=== PATIENT | male | born 1980 | race African-American/Black ===

== ENCOUNTER 2016-05-14 15:22 | Emergency (ER) | payer OTHER ==
[~2016-05-14] VITALS: Ht 193 cm; Wt 120.8 kg
[2016-05-14 15:27] VITALS: BP 140/80
--- NOTE | 2016-05-14 20:10 | NUR ---
PATIENT LEFT WITHOUT BEING SEEN BY DR. CASAS. NO FURTHER CARE PROVIDED FOR PATIENT.
== END 2016-05-14 20:10 | disposition left against medical advice (07) ==
LOC: MED 15:22
DX: R10.13 Epigastric pain (principal); R07.89 Other chest pain; Z53.21 Procedure and treatment not carried out due to patient leaving prior to being seen by health care provider
CPT/HCPCS: 93005

== ENCOUNTER 2016-05-22 23:01 | Emergency (ER) | payer OTHER ==
[~2016-05-22] VITALS: Ht 182.9 cm; Wt 120.7 kg
[2016-05-22 23:06] VITALS: BP 142/81
--- NOTE | 2016-05-23 01:19 | NUR ---
PT TAKEN TO BED 8
--- NOTE | 2016-05-23 01:20 | NUR ---
35Y/M PATIENT PRESENTS TO ED WITH C/O BACK PAIN X 1 WK . PT STATES DENIES TRAUMA, NO FEVER . DENIES N/V/D; SKIN IS PINK/WARM/DRY; AAOX4 WITH EVEN AND STEADY GAIT; LUNGS CLEAR BL; HR EVEN AND REGULAR; PT DENIES ANY FEVER, CP, SOB, OR COUGH AT THIS TIME; PATIENT STATES PAIN OF 10/10 AT THIS TIME; VSS; PATIENT POSITIONED FOR COMFORT; HOB ELEVATED; BEDRAILS UP X2; BED DOWN. ER MD MADE AWARE OF PT STATUS.
--- NOTE | 2016-05-23 02:24 | NUR ---
Dr. Ng evaluating patient at bedside.
[2016-05-23] MEDS ORDERED: DIAZEPAM 5 MG TAB PO ONE (02:30)
[2016-05-23] MEDS ORDERED: KETOROLAC 30 MG/ML VIAL IM ONE (02:30)
--- NOTE | 2016-05-23 03:00 | NUR ---
Patient discharged with v/s stable. Written and verbal after care instructions given and explained. Patient alert, oriented and verbalized understanding of instructions. Ambulatory with steady gait. All questions addressed prior to discharge. ID band removed. Patient advised to follow up with PMD. Rx of TYLENOL NO.3, VALIUM 5 MG, NAPROSYN 500 MG given. Patient educated on indication of medication including possible reaction and side effects. Opportunity to ask questions provided and answered. ACCOMPANIED BY FAMILY.
[2016-05-23 03:02] VITALS: BP 132/82
== END 2016-05-23 03:00 | disposition home or self-care (01) ==
LOC: MED 23:01
DX: S39.012A Strain of muscle, fascia and tendon of lower back, initial encounter (principal); Z88.0 Allergy status to penicillin; X58.XXXA Exposure to other specified factors, initial encounter; Y93.89 Activity, other specified; Y92.89 Other specified places as the place of occurrence of the external cause; Y99.8 Other external cause status
CPT/HCPCS: 81002; 96372; 99283; J1885

== ENCOUNTER 2017-04-06 03:59 | Emergency (ER) | payer OTHER ==
[~2017-04-06] VITALS: Ht 182.9 cm; Wt 119.3 kg
[2017-04-06 04:09] VITALS: BP 139/87
--- NOTE | 2017-04-06 04:15 | NUR ---
PT. AMBULATED TO ER ABIEL
--- NOTE | 2017-04-06 04:17 | NUR ---
DR. CASAS EVALUATING PT
[2017-04-06] MEDS ORDERED: KETOROLAC 30 MG/ML VIAL IM ONE (04:25)
--- NOTE | 2017-04-06 04:56 | NUR ---
36 Y/O M W/C/O SHOULDER PAIN X 2 WKS. DENIES ANY TRAUMA OR INJURY.TOOK MOTRIN 1 HRS AGO. NO MED HX. NO OTHER S/S OF DISTRESS NOTED AT THE MOMENT.
[2017-04-06 05:42] VITALS: BP 139/87
--- NOTE | 2017-04-06 05:42 | NUR ---
Patient discharged with v/s stable. Written and verbal after care instructions given and explained. Patient alert, oriented and verbalized understanding of instructions. Ambulatory with steady gait. All questions addressed prior to discharge. ID band removed. Patient advised to follow up with PMD. Rx of NAPROSYN 500 MG, VALIUM 5 MG given. Patient educated on indication of medication including possible reaction and side effects. Opportunity to ask questions provided and answered.
== END 2017-04-06 05:42 | disposition home or self-care (01) ==
LOC: MED 03:59
DX: M75.92 Shoulder lesion, unspecified, left shoulder (principal); Z88.0 Allergy status to penicillin
CPT/HCPCS: 73030; 96372; 99284; J1885

== ENCOUNTER 2018-03-09 11:28 | Emergency (ER) | payer OTHER ==
[~2018-03-09] VITALS: Ht 193 cm; Wt 117.5 kg
[2018-03-09 12:12] VITALS: BP 128/81
--- NOTE | 2018-03-09 13:19 | NUR ---
PT AMBULATED TO ER BED 02
--- NOTE | 2018-03-09 13:38 | NUR ---
RIGHT INGROWN NAIL , GREAT TOE; COMPLETED 1 WK COURSE OF KEFLEX PRESCRIBED OUTSIDE CLINIC. HX--DENIES RX---NONE
--- NOTE | 2018-03-09 14:05 | NUR ---
Patient being evaluated by DR MCDONALD at bedside.
[2018-03-09] MEDS ORDERED: LIDOCAINE 2% 1000 MG/50 ML VIAL INJ ONE (14:10)
[2018-03-09] MEDS ORDERED: BACITRACIN OINT 500 UNITS/GM PKT TP ONE (15:17)
[2018-03-09 15:22] VITALS: BP 118/68
--- NOTE | 2018-03-09 15:22 | NUR ---
Patient discharged with v/s stable. Written and verbal after care instructions given and explained. Patient verbalized understanding. Ambulatory with steady gait. All questions addressed prior to discharge. Advised to follow up with PMD.
== END 2018-03-09 15:22 | disposition home or self-care (01) ==
LOC: MED 11:28
DX: L60.0 Ingrowing nail (principal); Z88.0 Allergy status to penicillin
CPT/HCPCS: 11730; 99283; J2001

== ENCOUNTER 2018-07-01 05:32 | Emergency (ER) | payer OTHER ==
[~2018-07-01] VITALS: Ht 193 cm; Wt 124.7 kg
[2018-07-01 05:35] VITALS: BP 141/81
--- NOTE | 2018-07-01 05:35 | NUR ---
PT PRESENTS TO ED WITH C/O NON-RADIATING LEFT CHEST PAIN AND LEFT LEG PAIN X3 HRS. 10/10 SEVERE STABBING PAIN. NAUSEA WITHOUT VOMITNIG. NO SOB/DYSNPEA. A&OX4. HR 92 SINUS RHYTHM. POSITOINED IN BED FOR COMFORT WITH HOB ELEVATED. X1 SIDE RAIL UP. ER MD AWARE. CONTINUE TO MONITOR.
--- NOTE | 2018-07-01 05:35 | NUR ---
PT TAKEN TO BED 7
--- NOTE | 2018-07-01 05:42 | NUR ---
EKG PERFORMED AT BEDSIDE. PT COVERED IN GOWN DURING PROCEDURE
--- NOTE | 2018-07-01 05:51 | NUR ---
Dr. Ng evaluating patient at bedside.
[2018-07-01] MEDS ORDERED: DIAZEPAM 5 MG TAB PO ONE (05:55)
[2018-07-01] MEDS ORDERED: KETOROLAC 30 MG/ML VIAL IM ONE (05:55)
--- NOTE | 2018-07-01 06:00 | NUR ---
PT UNABLE TO GIVE URINE AT THIS TIME. URINE CUP AT BEDSIDE. PROVIDED WITH WATER.
--- NOTE | 2018-07-01 06:10 | NUR ---
X-Ray at bedside.
[2018-07-01 07:33] VITALS: BP 136/96
== END 2018-07-01 07:33 | disposition home or self-care (01) ==
LOC: MED 05:32
DX: R07.89 Other chest pain (principal); Z88.0 Allergy status to penicillin
CPT/HCPCS: 71045; 96372; 99283; J1885; Q0092; 93005

== ENCOUNTER 2018-07-21 14:17 | Emergency (ER) | payer OTHER ==
[~2018-07-21] VITALS: Ht 193 cm; Wt 123.4 kg
[2018-07-21 14:25] VITALS: BP 122/66
--- NOTE | 2018-07-21 14:30 | NUR ---
PT AMBULATED TO BED 9, PROVIDED CUP FOR URINE SAMPLE
--- NOTE | 2018-07-21 14:32 | NUR ---
pt moved to bed 3
--- NOTE | 2018-07-21 14:54 | NUR ---
C/O LLQ ABD PAIN RADIATING TO RLQ10/10 SHARP, CONTINUOUS X 1 DAYS W/ NAUSEA. DENIES VOMITING AND DIARRHEA; AAOX4 WITH EVEN AND STEADY GAIT; LOWER ABDOMINAL SOFT, FLAT, BUT TENDERNESS AND RIGHT CVA TENDERNESS ON PALPATION. PT DENIES ANY FEVER, CP, SOB, OR COUGH AT THIS TIME; PATIENT STATES PAIN OF 10/10 AT THIS TIME; VSS; PATIENT POSITIONED FOR COMFORT; HOB ELEVATED; BEDRAILS UP X1; BED DOWN. ER MD MADE AWARE OF PT STATUS.
[2018-07-21] MEDS ORDERED: NACL 0.9% 1,000 ML IV SCH (15:02)
[2018-07-21] MEDS ORDERED: KETOROLAC 30 MG/ML VIAL IVP ONE (15:05)
[2018-07-21] MEDS ORDERED: ONDANSETRON 4 MG/2 ML VIAL IVP ONE (15:05)
[2018-07-21 15:29] LABS: APPEARANCE,URINE CLEAR (CLEAR); BILIRUBIN,URINE NEGATIVE (NEGATIVE); BLOOD, URINE NEGATIVE (NEGATIVE); COLOR,URINE YELLOW (YELLOW); LEUKOCYTE ESTERASE ,URINE NEGATIVE (NEGATIVE); NITRITE, URINE NEGATIVE (NEGATIVE); UGLUCOSE NEGATIVE (NEGATIVE)
[2018-07-21 15:30] LABS: BASOPHILS # (AUTO) 0.1 K/uL (0.00-0.22); BASOPHILS % (AUTO) 0.6 % (0.0-2.0); EOSINOPHILS # (AUTO) 0.1 K/uL (0-0.4); EOSINOPHILS % (AUTO) 1.1 % (0.0-4.0); HEMATOCRIT 44.6 % (36-52); HEMOGLOBIN 14.5 g/dL (12.0-18.0); LYMPHOCYTES % (AUTO) 11.5 % (20.5-51.1); MEAN CORPUSCULAR HEMOGLOBIN 28 pg (27-31); MEAN CORPUSCULAR HGB CONC 33 g/dL (33-37); MONOCYTES # (AUTO) 0.6 K/uL (0.8-1.0); MONOCYTES % (AUTO) 7.2 % (1.7-9.3); NEUTROPHILS # (AUTO) 6.6 K/uL (1.8-7.7); NEUTROPHILS % (AUTO) 79.6 % (42.2-75.2); PLATELET COUNT (AUTO) 199 K/uL (140-450); RED BLOOD CELL COUNT(AUTO) 5.19 MIL/uL (4.20-6.10); RED CELL DISTRIBUTION WIDTH 14.4 % (11.6-13.7); WHITE BLOOD COUNT (AUTO) 8.3 K/uL (4.8-10.8)
[2018-07-21 15:38] LABS: CARBON DIOXIDE 28.8 mmol/L (21-32); CREATININE 1.1 mg/dL (0.7-1.3); POTASSIUM 3.8 mmol/L (3.5-5.1)
[2018-07-21 15:44] LABS: ALBUMIN 3.4 g/dL (3.4-5.0); TOTAL BILIRUBIN 1.2 mg/dL (0.0-1.0)
[2018-07-21] MEDS ORDERED: metroNIDAZOLE 250 MG TAB PO ONE (16:20)
[2018-07-21] MEDS ORDERED: SULFAMETH/TRIMETH DS 800/160MG 1 TAB PO ONE (16:20)
[2018-07-21 17:14] VITALS: BP 122/59
--- NOTE | 2018-07-21 17:15 | NUR ---
Patient discharged with v/s stable. Written and verbal after care instructions given and explained. Patient alert, oriented and verbalized understanding of instructions. Ambulatory with steady gait. All questions addressed prior to discharge. ID band removed. Patient advised to follow up with PMD. Rx of [place], Colace, Flagyl, and Bactrim given. Patient educated on indication of medication including possible reaction and side effects. Opportunity to ask questions provided and answered.
== END 2018-07-21 17:15 | disposition home or self-care (01) ==
LOC: MED 14:17
DX: K57.92 Diverticulitis of intestine, part unspecified, without perforation or abscess without bleeding (principal); R03.0 Elevated blood-pressure reading, without diagnosis of hypertension; M54.9 Dorsalgia, unspecified; Z88.0 Allergy status to penicillin
CPT/HCPCS: 36415; 74176; 80053; 81003; 83605; 85025; 87040; 96374; 96375; 99284; J1885; J2405; J7030

== ENCOUNTER 2018-07-22 15:24 | Emergency (ER) | payer OTHER ==
[~2018-07-22] VITALS: Ht 193 cm; Wt 123.8 kg
[2018-07-22 16:01] VITALS: BP 134/69
--- NOTE | 2018-07-22 16:12 | NUR ---
PATIENT AMBULATED TO BED 8 AT THIS TIME.
--- NOTE | 2018-07-22 16:35 | NUR ---
DR. ZIMMERMAN BEDSIDE EVALUATING PT
--- NOTE | 2018-07-22 16:35 | NUR ---
PATIENT PRESENTS TO ED WITH C/O LLQ ABD PAIN X 2 DAYS . +NAUSEA, +VOMITING. DENIES DIARRHEA OR FEVER. PATIENT STATES PAIN OF 10/10 AT THIS TIME; PATIENT POSITIONED FOR COMFORT; HOB ELEVATED; BEDRAILS UP X1; BED DOWN. PENDING ER MD EVALUATION.
[2018-07-22] MEDS ORDERED: NACL 0.9% 1,000 ML IV ONE (16:40)
--- NOTE | 2018-07-22 17:17 | NUR ---
PT TAKEN TO CT VIA WHEELCHAIR
[2018-07-22 17:18] LABS: BASOPHILS % (AUTO) 0.2 % (0.0-2.0); EOSINOPHILS # (AUTO) 0.1 K/uL (0-0.4); EOSINOPHILS % (AUTO) 0.6 % (0.0-4.0); HEMATOCRIT 41.4 % (36-52); HEMOGLOBIN 13.4 g/dL (12.0-18.0); LYMPHOCYTES # (AUTO) 0.9 K/uL (2.0-11.5); LYMPHOCYTES % (AUTO) 8.4 % (20.5-51.1); MEAN CORPUSCULAR HEMOGLOBIN 28 pg (27-31); MEAN CORPUSCULAR HGB CONC 32 g/dL (33-37); MEAN CORPUSCULAR VOLUME 86.4 fL (80-94); MONOCYTES % (AUTO) 9.2 % (1.7-9.3); NEUTROPHILS # (AUTO) 8.6 K/uL (1.8-7.7); NEUTROPHILS % (AUTO) 81.6 % (42.2-75.2); PLATELET COUNT (AUTO) 199 K/uL (140-450); RED BLOOD CELL COUNT(AUTO) 4.79 MIL/uL (4.20-6.10); RED CELL DISTRIBUTION WIDTH 14.2 % (11.6-13.7); WHITE BLOOD COUNT (AUTO) 10.5 K/uL (4.8-10.8)
--- NOTE | 2018-07-22 17:31 | NUR ---
PT RETURNED FROM CT
[2018-07-22 17:44] LABS: ANION GAP 10.4 (8-16); CARBON DIOXIDE 28.8 mmol/L (21-32); CREATININE 1.1 mg/dL (0.7-1.3); POTASSIUM 4.2 mmol/L (3.5-5.1)
[2018-07-22 17:49] LABS: ALBUMIN 3.1 g/dL (3.4-5.0); TOTAL BILIRUBIN 1.8 mg/dL (0.0-1.0)
[2018-07-22 18:04] LABS: APPEARANCE,URINE CLEAR (CLEAR); BILIRUBIN,URINE NEGATIVE (NEGATIVE); BLOOD, URINE NEGATIVE (NEGATIVE); COLOR,URINE YELLOW (YELLOW); LEUKOCYTE ESTERASE ,URINE NEGATIVE (NEGATIVE); NITRITE, URINE NEGATIVE (NEGATIVE); UGLUCOSE NEGATIVE (NEGATIVE)
[2018-07-22] MEDS ORDERED: metroNIDAZOLE 250 MG TAB PO ONE (18:40)
[2018-07-22] MEDS ORDERED: AZITHROMYCIN 250 MG TAB PO ONE (18:40)
[2018-07-22 19:28] VITALS: BP 132/82
--- NOTE | 2018-07-22 19:28 | NUR ---
IV removed, catheter intact and site benign. Applied folded 4x4 gauze and tape to stop bleeding.
== END 2018-07-22 19:28 | disposition home or self-care (01) ==
LOC: MED 15:24
DX: K57.92 Diverticulitis of intestine, part unspecified, without perforation or abscess without bleeding (principal); R11.2 Nausea with vomiting, unspecified; Z88.0 Allergy status to penicillin
CPT/HCPCS: 36415; 74177; 80053; 81003; 85025; 96360; 96361; 99284; J7030; Q9967; 81002

== ENCOUNTER 2018-08-23 14:14 | Emergency (ER) | payer OTHER ==
[~2018-08-23] VITALS: Ht 193 cm; Wt 124.7 kg
[2018-08-23 14:15] VITALS: BP 122/82
--- NOTE | 2018-08-23 14:15 | NUR ---
PT c/o eczema exacerbation x 2 wks ; worsening with severe pruritus. DENIES N/V/D; AAOX4 WITH EVEN AND STEADY GAIT; PT DENIES ANY FEVER, CP, SOB, OR COUGH AT THIS TIME; PATIENT STATES PAIN OF 0/10 AT THIS TIME; VSS; PATIENT POSITIONED FOR COMFORT; HOB ELEVATED; BEDRAILS UP X1; BED DOWN. ER MD MADE AWARE OF PT STATUS.
--- NOTE | 2018-08-23 14:48 | NUR ---
Patient discharged with v/s stable. Written and verbal after care instructions given and explained. Patient alert, oriented and verbalized understanding of instructions. Ambulatory with steady gait. All questions addressed prior to discharge. ID band removed. Patient advised to follow up with PMD. Rx of HYDROCORTISONE, PREDNISONE, ATARAX given. Patient educated on indication of medication including possible reaction and side effects. Opportunity to ask questions provided and answered.
[2018-08-23 14:49] VITALS: BP 119/79
== END 2018-08-23 14:48 | disposition home or self-care (01) ==
LOC: MED 14:14
DX: L30.9 Dermatitis, unspecified (principal); Z88.0 Allergy status to penicillin
CPT/HCPCS: 99283

== ENCOUNTER 2019-02-20 17:37 | Emergency (ER) | payer SELFPAY ==
[~2019-02-20] VITALS: Ht 193 cm; Wt 124.7 kg
[2019-02-20 17:50] VITALS: BP 139/88
--- NOTE | 2019-02-20 18:17 | NUR ---
PT AMBULATED TO ER BED 08
--- NOTE | 2019-02-20 18:18 | NUR ---
PATIENT PRESENTS TO ED WITH c/o right shoulder pain >1 month; unable to lift above chest level . PATIENT STATES PAIN OF 8/10 AT THIS TIME; VSS; PATIENT POSITIONED FOR COMFORT; HOB ELEVATED; BEDRAILS UP X2; BED DOWN. ER MD MADE AWARE OF PT STATUS.
--- NOTE | 2019-02-20 18:55 | NUR ---
Patient being evaluated by physician at bedside.
[2019-02-20] MEDS ORDERED: KETOROLAC 60 MG/2 ML VIAL IM ONE (19:00)
--- NOTE | 2019-02-20 19:05 | NUR ---
REPORT GIVEN TO GOLF CADDY NURSE FOR CONTINUE OF CARE.
--- NOTE | 2019-02-20 19:05 | NUR ---
REPORT GIVEN FROM YANNICK SERRATO. TRANSFER OF CARE GIVEN.
--- NOTE | 2019-02-20 19:12 | NUR ---
PT AXO X4. RESPIRATIONS ARE EVEN AND UNLABORED. SKIN IS WARM AND DRY TO TOUCH. PT HAS C/O 8/10 R SHOULDER PAIN UNPROVOKED. TORADOL IM GIVEN FOR PAIN RELIEF. AT BEDSIDE.
--- NOTE | 2019-02-20 19:32 | NUR ---
PTS RIGHT ARM WAS PLACED IN A SHOULDER SLING. PTS [facility] [place] WNL.
--- NOTE | 2019-02-20 19:42 | NUR ---
PT TAKEN TO XRAY
--- NOTE | 2019-02-20 19:50 | NUR ---
PT RETURN FROM XRAY
--- NOTE | 2019-02-20 20:00 | NUR ---
SLING PLACED ON PT R SHOULDER BY ANG MEJIA. CMS INTACT. CAP REFIL <3. REPORTS NO NUMBNESS OR TINGLING.
[2019-02-20 20:14] VITALS: BP 139/88
== END 2019-02-20 20:16 | disposition home or self-care (01) ==
LOC: MED 17:37
DX: S46.811A Strain of other muscles, fascia and tendons at shoulder and upper arm level, right arm, initial encounter (principal); Z88.0 Allergy status to penicillin; X58.XXXA Exposure to other specified factors, initial encounter; Y93.89 Activity, other specified; Y92.89 Other specified places as the place of occurrence of the external cause; Y99.8 Other external cause status
CPT/HCPCS: 73030; 96372; 99283; J1885

== ENCOUNTER 2019-04-24 22:44 | Emergency (ER) | payer SELFPAY ==
[~2019-04-24] VITALS: Ht 193 cm; Wt 135.2 kg
[2019-04-24 22:50] VITALS: BP 139/86
--- NOTE | 2019-04-25 00:57 | NUR ---
PATIENT DENIES CHANGE IN STATUS, VS STABLE
--- NOTE | 2019-04-25 01:12 | NUR ---
PT AMBULATED TO BED 1
--- NOTE | 2019-04-25 01:25 | NUR ---
38 Y/M PRESENTS TO ED FOR PRODUCTIVE COUGH X1 WEEK, ALONG WITH NASAL CONGESTION, AND HEADACHE WHICH STARTED YESTERDAY 5/10 PAIN. NEGATIVE FOR SICK CONTACTS AT HOME. DENIES VOMITING, DIARRHEA, SOB OR FEVERS. RR EVEN AND UNLABORED. EXPIRATORY WHEEZES HEARD THORUGHOUT. PT TAKING THERAFLU AND NYQUIL AT HOME AND REPORTS NO RELIEF. PMH- DENIES.
--- NOTE | 2019-04-25 01:27 | NUR ---
REPORT GIVEN TO ROJELIO MO FOR CONTINUITY OF CARE.
--- NOTE | 2019-04-25 01:45 | NUR ---
PT SITTING IN BED, COMFORT MEASURES OFFERED, PT TOLERATED WELL.
[2019-04-25] MEDS ORDERED: ALBUTEROL 0.083% 2.5 MG/3 ML NEBU INH ONE (02:20)
--- NOTE | 2019-04-25 02:22 | NUR ---
Patient sitting up in bed. RT called for breathing treatment.
--- NOTE | 2019-04-25 02:30 | NUR ---
RT AT BEDSIDE.
[2019-04-25 03:22] VITALS: BP 138/89
--- NOTE | 2019-04-25 03:22 | NUR ---
Patient discharged with v/s stable. Written and verbal after care instructions given and explained. Patient alert, oriented and verbalized understanding of instructions. Ambulatory with steady gait. All questions addressed prior to discharge. ID band removed. Patient advised to follow up with PMD. Rx of ventolin, medrol given. Patient educated on indication of medication including possible reaction and side effects. Opportunity to ask questions provided and answered.
== END 2019-04-25 03:22 | disposition home or self-care (01) ==
LOC: MED 22:44
DX: J20.9 Acute bronchitis, unspecified (principal); Z88.0 Allergy status to penicillin
CPT/HCPCS: 71045; 87804; 94640; 99283; J7613; Q0092

== ENCOUNTER 2019-08-09 20:48 | Emergency (ER) | payer SELFPAY ==
[~2019-08-09] VITALS: Ht 193 cm; Wt 136.1 kg
[2019-08-09 21:01] VITALS: BP 152/91
--- NOTE | 2019-08-09 21:03 | NUR ---
PT IN TENT
--- NOTE | 2019-08-09 22:05 | NUR ---
COVID SWAB OBTAINED AND WALKED OVER TO LAB.
--- NOTE | 2019-08-10 00:25 | NUR ---
Patient discharged with v/s stable. Written and verbal after care instructions given and explained. Patient verbalized understanding. Ambulatory with steady gait. All questions addressed prior to discharge. Advised to follow up with PMD. Prescription of azithromycin, prednisolone, e-z spacer were given. Pt no other concerns noted and d/c
[2019-08-10 00:30] VITALS: BP 121/81
== END 2019-08-10 00:25 | disposition home or self-care (01) ==
LOC: MED 20:48 → EEVIPCON 20:48 → MED 08-10 00:25
DX: J40 Bronchitis, not specified as acute or chronic (principal); F12.90 Cannabis use, unspecified, uncomplicated; Z88.0 Allergy status to penicillin; Z20.828 Contact with and (suspected) exposure to other viral communicable diseases
CPT/HCPCS: 71045; 99284; Q0092; U0003

== ENCOUNTER 2019-08-31 21:29 | Emergency (ER) | payer SELFPAY ==
[~2019-08-31] VITALS: Ht 193 cm; Wt 136.1 kg
[2019-08-31 22:05] VITALS: BP 139/77
--- NOTE | 2019-08-31 23:08 | NUR ---
COVID SWAB COLLECTED AND SENT TO LAB.
--- NOTE | 2019-08-31 23:30 | NUR ---
PT ASSESSED AND EVALUATED BY JUAN MANUEL GUNTER.
[2019-09-01 00:08] VITALS: BP 139/77
== END 2019-09-01 00:08 | disposition home or self-care (01) ==
LOC: MED 21:29
DX: R06.02 Shortness of breath (principal); R05 Cough; F12.90 Cannabis use, unspecified, uncomplicated; Z20.828 Contact with and (suspected) exposure to other viral communicable diseases; Z88.0 Allergy status to penicillin
CPT/HCPCS: 99283; U0003

== ENCOUNTER 2020-08-29 17:11 | Emergency (ER) | payer BC, OTHER ==
[~2020-08-29] VITALS: Ht 193 cm; Wt 138.3 kg
[2020-08-29 17:30] VITALS: BP 146/81
--- NOTE | 2020-08-29 17:48 | NUR ---
Pt placed in lobby from x-ray.
[2020-08-29] MEDS ORDERED: NAPR-54 PO (18:06)
[2020-08-29] MEDS ORDERED: KETOROLAC 30 MG/ML VIAL IM ONE (18:10)
--- NOTE | 2020-08-29 18:21 | NUR ---
39 Y/O M BIB SELF FROM HOME, PATIENT PRESENTS TO ED WITH L LEG PAIN AFTER HE STATES HE STEPPED WRONG WHILE WALKING THIS AFTERNOON. PT WAS ABLE TO FLEX AND EXTEND FOOT, SENSATION STILL INTACT, CAP REFILL <3. DENIES N/V/D; SKIN IS PINK/WARM/DRY; AAOX4 AMBULATES WITH ASSIST; LUNGS CLEAR BL; HR EVEN AND REGULAR; PT DENIES ANY FEVER, CP, SOB, OR COUGH AT THIS TIME; PATIENT STATES PAIN OF 10/10 AT THIS TIME; VSS; PATIENT POSITIONED FOR COMFORT; HOB ELEVATED; BEDRAILS UP X2; BED DOWN. ER MD MADE AWARE OF PT STATUS. PMH: DENIES ALLERGY: PENICILLIN
[2020-08-29 19:00] VITALS: BP 146/81
--- NOTE | 2020-08-29 19:00 | NUR ---
Patient discharged with v/s stable. Written and verbal after care instructions ABOUT MEDICATION, KNEE EFFUSION AND KNEE SPRAIN given and explained. Patient alert, oriented and verbalized understanding of instructions. Ambulatory with steady gait. All questions addressed prior to discharge. ID band removed. Patient advised to follow up with PMD. Rx of NAPROXEN given. Patient educated on indication of medication including possible reaction and side effects. Opportunity to ask questions provided and answered.
== END 2020-08-29 18:57 | disposition home or self-care (01) ==
LOC: MED 17:11
DX: M25.562 Pain in left knee (principal); Z88.0 Allergy status to penicillin; Z79.899 Other long term (current) drug therapy
CPT/HCPCS: 73562; 96372; 99283; J1885

== ENCOUNTER 2020-08-31 18:36 | Emergency (ER) | payer BC ==
[~2020-08-31] VITALS: Ht 193 cm; Wt 138.3 kg
[~2020-08-31 18:36] MED LIST: NAPR-54 PO
[2020-08-31 18:47] VITALS: BP 137/84
--- NOTE | 2020-08-31 18:48 | NUR ---
Patient ambulated to bed 7. RN evaluating the patient at bedside.
--- NOTE | 2020-08-31 19:07 | NUR ---
39/M presents to ED with c/o left knee pain. Patient states he was here Thursday for same complaint, stating he felt relief with Rx of Naprosyn but states pain and swelling returned today and is now radiating down left leg. Patient denies injury or trauma, stating calf feels tender to touch. Patient describes it as a 10/10 aching pain that worsens with ambulation and touch. Left knee zuri wrapped from previous visit, calf is tender no warmth or redness noted, patient able to ambulate without assistance.
--- NOTE | 2020-08-31 19:13 | NUR ---
Pt report given to Haydee. Transfer of care at this time.
--- NOTE | 2020-08-31 19:15 | NUR ---
report received from panda nava. transfer of care at this time.
--- NOTE | 2020-08-31 19:19 | NUR ---
leo pro at bedside.
--- NOTE | 2020-08-31 19:32 | NUR ---
pt is laying in bed. states he has 9/10 sharp pain on L knee, radiating to calf. walking worsens pain. pt stated he took ibuprofen around 11am with little relief. offered comfort measures for pain. bed locked in lowest position, side rails x1. all needs met at this time. Addendum: 08/31/20 at 194 by MED pt is laying in bed. states he has 9/10 sharp pain on L knee, radiating to calf. walking worsens pain. pt stated he took ibuprofen around 11am with little relief. offered comfort measures for pain. bed locked in lowest position, side rails x1. all needs met at this time. leo made aware.
[2020-08-31] MEDS ORDERED: ONDANSETRON 4 MG ODT PO ONE (19:50)
[2020-08-31] MEDS ORDERED: MORPHINE SULFATE 4 MG/ML SYR IM ONE (19:50)
--- NOTE | 2020-08-31 19:50 | NUR ---
lab at bedside.
--- NOTE | 2020-08-31 19:55 | NUR ---
pt placed on 02 monitor prior to morphine IM.
[2020-08-31 20:02] LABS: BASOPHILS % (AUTO) 0.5 % (0.0-2.0); EOSINOPHILS # (AUTO) 0.1 K/uL (0-0.4); EOSINOPHILS % (AUTO) 2.6 % (0.0-4.0); HEMATOCRIT 40.9 % (36-52); HEMOGLOBIN 13.3 g/dL (12.0-18.0); LYMPHOCYTES # (AUTO) 1.2 K/uL (2.0-11.5); LYMPHOCYTES % (AUTO) 24.5 % (20.5-51.1); MEAN CORPUSCULAR HEMOGLOBIN 28 pg (27-31); MEAN CORPUSCULAR HGB CONC 33 g/dL (33-37); MEAN CORPUSCULAR VOLUME 86.4 fL (80-94); MONOCYTES # (AUTO) 0.5 K/uL (0.8-1.0); NEUTROPHILS % (AUTO) 61.4 % (42.2-75.2); PLATELET COUNT (AUTO) 225 K/uL (140-450); RED BLOOD CELL COUNT(AUTO) 4.73 MIL/uL (4.20-6.10); RED CELL DISTRIBUTION WIDTH 14.2 % (11.6-13.7); WHITE BLOOD COUNT (AUTO) 4.9 K/uL (4.8-10.8)
[2020-08-31 20:16] LABS: ALBUMIN 3.7 g/dL (3.4-5.0); ANION GAP 9.3 (8-16); CARBON DIOXIDE 28.3 mmol/L (21-32); POTASSIUM 3.6 mmol/L (3.5-5.1); TOTAL BILIRUBIN 0.9 mg/dL (0.0-1.0)
--- NOTE | 2020-08-31 20:30 | NUR ---
pt sitting up in bed using phone. all needs met at this time.
--- NOTE | 2020-08-31 21:27 | NUR ---
pt offered a warm blanket and something to drink/eat. pt denied stated he was ok. all needs met at this time. pt is sitting up in bed using phone. side rails x1, bed locked in lowest position.
--- NOTE | 2020-08-31 21:47 | NUR ---
taken to ct via wheel chair.
--- NOTE | 2020-08-31 21:58 | NUR ---
back from ct via wheelchair.
[2020-08-31] MEDS ORDERED: HYDROcodone/APAP 5/325 MG 1 TAB TAB PO ONE (22:40)
[2020-08-31] MEDS ORDERED: ACET-8386 PO (22:42)
[2020-08-31] MEDS ORDERED: IBUP-2218 PO (22:42)
--- NOTE | 2020-08-31 22:44 | NUR ---
[facility] at bedside providing tx.
[2020-08-31 22:54] VITALS: BP 135/80
--- NOTE | 2020-08-31 22:54 | NUR ---
Patient discharged with v/s stable. Written and verbal after care instructions given and explained. Patient alert, oriented and verbalized understanding of instructions. Ambulatory with steady gait. All questions addressed prior to discharge. ID band removed. Patient advised to follow up with PMD. Rx of [place] IBUPROFEN given. Patient educated on indication of medication including possible reaction and side effects. Opportunity to ask questions provided and answered.
== END 2020-08-31 22:54 | disposition home or self-care (01) ==
LOC: MED 18:36
DX: S82.142A Displaced bicondylar fracture of left tibia, initial encounter for closed fracture (principal); Z88.0 Allergy status to penicillin; X58.XXXA Exposure to other specified factors, initial encounter; Y93.89 Activity, other specified; Y92.89 Other specified places as the place of occurrence of the external cause; Y99.8 Other external cause status
CPT/HCPCS: 36415; 73700; 80053; 85025; 96372; 99285; J2270; Q0162

== ENCOUNTER 2022-10-28 10:43 | Emergency (ER) | payer BC ==
[~2022-10-28] VITALS: Ht 193 cm; Wt 127.2 kg
[~2022-10-28 10:43] MED LIST changes: +ACET-8905 PO; +IBUP-2218 PO
[2022-10-28 10:58] VITALS: BP 133/77; PULSE 73; RESP 20; TEMP 98; O2SAT 97
[2022-10-28] MEDS ORDERED: CEPH-588 PO (12:33)
[2022-10-28 12:43] VITALS: BP 133/77; PULSE 73; RESP 20; TEMP 98; O2SAT 97
== END 2022-10-28 12:43 | disposition home or self-care (01) ==
LOC: MED 10:43
DX: B35.1 Tinea unguium (principal); Z88.0 Allergy status to penicillin; Z79.899 Other long term (current) drug therapy
CPT/HCPCS: 99283

== ENCOUNTER 2023-09-20 22:02 | Emergency (ER) | payer BC ==
[~2023-09-20] VITALS: Ht 193 cm; Wt 122.5 kg
[~2023-09-20 22:02] MED LIST changes: +CEPH-588 PO; +NAPR-337 PO; -NAPR-54 PO
[2023-09-20 22:09] VITALS: BP 138/93; PULSE 81; RESP 16; TEMP 98; O2SAT 98
[2023-09-20] MEDS ORDERED: IBUP-2213 PO (22:27)
[2023-09-20] MEDS: KETOROLAC 60 MG/2 ML VIAL IM ONE (22:32)
[2023-09-20 22:45] VITALS: BP 132/93; PULSE 78; RESP 18; TEMP 98; O2SAT 98
== END 2023-09-20 22:44 | disposition home or self-care (01) ==
LOC: MED 22:02
DX: R07.89 Other chest pain (principal); R06.02 Shortness of breath; R03.0 Elevated blood-pressure reading, without diagnosis of hypertension; Z98.890 Other specified postprocedural states; Z79.1 Long term (current) use of non-steroidal anti-inflammatories (NSAID); Z79.899 Other long term (current) drug therapy
CPT/HCPCS: 96372; 99283; J1885